=== PATIENT | female | born 1990 | race Caucasian/White ===

== ENCOUNTER 2022-06-21 08:36 | Emergency (ER) | payer MEDICAID ==
[~2022-06-21] VITALS: Ht 167.6 cm; Wt 83.5 kg
[2022-06-21 08:40] VITALS: BP 122/73
--- NOTE | 2022-06-21 08:48 | NUR ---
ambulated to bed 7
--- NOTE | 2022-06-21 08:53 | NUR ---
31/F PRESENTS TO ED WITH C/O LOWER ABDOMINAL PAIN, N/V. STATES A "VAGINAL BULGE" X2 WEEKS, REPORTS SHE "BELIEVES SHE HAS A CYSTOCELE." DENIES DYSURIA, HEMATURIA. REPORTS BEING SEEN AT URGENT CARE BUT WAS REFERRED TO GO TO OB.
--- NOTE | 2022-06-21 09:01 | NUR ---
MD JIMENEZ AT BEDSIDE FOR EVALUATION
--- NOTE | 2022-06-21 09:10 | NUR ---
31YO FEMALE PT C/O LOWER ABDOMINAL AND JESUS PELVIC PAIN [id number]. REPORTS SUDDEN SHARP R SIDED BACK PAIN AND NAUSEA THIS MORNING . NOTES SOMETHING "SQUISHY" COMING OUT OF VAGINAL AREA ON SATURDAY. DENIES VAGINAL BLEEDING/DISCHARGE, V/D, CHEST PAIN, SOB , FEVER OR CHILLS. PT AAOX4, RESPIRATIONS EVEN AND UNLABORED. HX:DENIES NKA
--- NOTE | 2022-06-21 10:10 | NUR ---
Female Skiving Machine Operator accompanied female patient for Pelvic Exam.
[2022-06-21] MEDS ORDERED: KETOROLAC 60 MG/2 ML VIAL IM ONE (10:15)
--- NOTE | 2022-06-21 10:35 | NUR ---
PT TAKEN TO CT VIA WHEELCHAIR
--- NOTE | 2022-06-21 10:47 | NUR ---
PT BROUGHT BACK FROM CT VIA WHEELCHAIR
[2022-06-21] MEDS ORDERED: TRAM50TA1 PO (11:58)
[2022-06-21 12:11] VITALS: BP 119/76
--- NOTE | 2022-06-21 12:11 | NUR ---
Patient discharged with v/s stable. Written and verbal after care instructions FOR PELVIC PAIN given and explained. Patient alert, oriented and verbalized understanding of instructions. Ambulatory with steady gait. All questions addressed prior to discharge. ID band removed. Patient advised to follow up with PMD. Rx of TRAMADOL given. Opportunity to ask questions provided and answered. OBGYN REFERRAL PROVIDED AND COPY OF CT PROVIDED
--- NOTE | 2022-06-21 12:12 | NUR ---
The patient's care was reviewed and supervised by Sujatha Lackey RN.
== END 2022-06-21 12:11 | disposition home or self-care (01) ==
LOC: MED 08:36
DX: R10.32 Left lower quadrant pain (principal); R11.0 Nausea; Z79.899 Other long term (current) drug therapy
CPT/HCPCS: 74176; 81002; 81025; 96372; 99284; J1885